=== PATIENT | female | born 1995 | race Caucasian/White ===

== ENCOUNTER 2016-10-14 12:29 | Outpatient (CLI) | payer MEDICAID, OTHER | END 2016-10-14 12:30 | disposition home or self-care (01) | DX: N64.4 Mastodynia (principal) ==

== ENCOUNTER 2018-05-01 01:33 | Emergency (ER) | payer SELFPAY ==
--- NOTE | 2018-05-01 02:17 | ED Physician Documentation ---
PD HPI UPPER EXT INJURY - Stated complaint Stated Complaint: RT WRIST INJURY - Chief complaint Chief Complaint: Ext Problem - History obtained from History obtained from: Patient - History of Present Illness Location: Right, Wrist Type of injury: Fall Where injury occurred: Street Timing - onset: Enter time (20:00), Today Improved by: Rest Worsened by: Moving, Palpating Associated symptoms: Swelling. No: Weakness, Numbness, Tingling Similar symptoms before: Has not had sx before Recently seen: Not recently seen - Additonal information Additional information: patient fell while skateboarding, approximately 8 PM tonight, c/o right wrist pain. Patient is right-hand dominant. 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 : None HEENT: None Psych: None, ADD/ADHD Musculoskeletal: None Derm: None - Past Surgical History Past Surgical History: No HEENT: Tonsil/Adenoidectomy - Present Medications Home Medications: Ambulatory Orders Medication Instructions Recorded Confirmed Dextroamphetamine/Amphetamine 30 mg PO TID 06/20/15 11/09/15 [Adderall 30 mg Tablet] Hydrocodone/Acetaminophen [[place] 1 each PO Q6H PRN #15 tablet 11/09/15 5-325 Tablet] Sulfamethoxazole/Trimethoprim 1 each PO BID #14 tablet 11/09/15 [Bactrim Ds Tablet] - Allergies Allergies/Adverse Reactions: Allergies Allergy/AdvReac Type Severity Reaction Status Date / Time amoxicillin Allergy Rash Verified 05/01/18 01:43 diphenhydramine HCl * AdvReac Respiratory Verified 05/01/18 01:43 [From Benadryl] - Social History Does the pt smoke?: No Smoking Status: Never smoker Does the pt drink ETOH?: No Does the pt have substance abuse?: No - Immunizations Immunizations are current?: Yes - POLST Patient has POLST: No PD ED PE NORMAL - Vitals Vital signs reviewed: Yes - General General: Alert and oriented X 3, No acute distress, Well developed/nourished - Derm Derm: Normal color, Warm and dry - Neuro Neuro: No motor deficit, No sensory deficit PD ED PE EXPANDED - Extremities Extremities: Limited ROM (limited supination of right wrist due to pain). No: Swelling, Bruising LEE ANN UE/Hands Visual: 1 - tenderness Results - Vitals Vitals: Vital Signs - 24 hr 05/01/18 05/01/18 05/01/18 01:41 02:12 02:50 Temperature 36.9 C Heart Rate 86 Respiratory 16 16 16 Rate Blood Pressure 117/69 O2 Saturation 100 05/01/18 05/01/18 03:38 03:45 Temperature Heart Rate 65 Respiratory 16 17 Rate Blood Pressure 114/76 O2 Saturation 100 Oxygen O2 Source Room air - Rads (name of study) right wrist xrays Radiology: Prelim report reviewed, See rad report PD MEDICAL DECISION MAKING - ED course Complexity details: reviewed results, re-evaluated patient, considered differential, d/w patient - Sepsis Event Vital Signs: Vital Signs - 24 hr 05/01/18 05/01/18 05/01/18 01:41 02:12 02:50 Temperature 36.9 C Heart Rate 86 Respiratory 16 16 16 Rate Blood Pressure 117/69 O2 Saturation 100 05/01/18 05/01/18 03:38 03:45 Temperature Heart Rate 65 Respiratory 16 17 Rate Blood Pressure 114/76 O2 Saturation 100 Oxygen O2 Source Room air Departure - Departure Disposition: 01 Home, Self Care Clinical Impression: Right wrist sprain Qualifiers: Encounter type: initial encounter Qualified Code(s): S63.501A - Unspecified sprain of right wrist, initial encounter Condition: Good Instructions: ED Splint Care Velcro, ED Sprain Wrist Follow-Up: Usman Lawrence MD [Provider Admit Priv/Credential] - (5-7 days if symptoms persist) Forms: Activity restrictions Discharge Date/Time: 05/01/18 03:45
--- NOTE | 2018-05-01 03:05 | XRAY Report ---
Procedure Date: 05/01/2018 Accession Number: [id number] / [id number] Procedure: XR - Wrist 3 View RT CPT Code: FULL RESULT: EXAM: RIGHT WRIST RADIOGRAPHY EXAM DATE: 05/01/2018 02:54 AM. CLINICAL HISTORY: Fall, pain and tenderness ulnar aspect. COMPARISON: None. TECHNIQUE: 4 views. FINDINGS: Bones: No fracture seen. Joints: No dislocation. Joint spaces appear intact. Soft Tissues: Soft tissue swelling. IMPRESSION: 1. No acute osseous abnormality seen. RADIA
[2018-05-01 03:48] VITALS: BP 114/76
== END 2018-05-01 03:45 | disposition home or self-care (01) ==
LOC: ED 01:33
DX: S63.501A Unspecified sprain of right wrist, initial encounter (principal); V00.131A Fall from skateboard, initial encounter; Y92.410 Unspecified street and highway as the place of occurrence of the external cause
CPT/HCPCS: 99282; 99283

== ENCOUNTER 2018-07-06 18:35 | Emergency (ER) | payer OTHER ==
--- NOTE | 2018-07-06 20:35 | ED Physician Documentation ---
PD HPI UPPER EXT INJURY - Stated complaint Stated Complaint: SWOLLEN R INDEX FINGER - Chief complaint Chief Complaint: Ext Problem - History obtained from History obtained from: Patient - History of Present Illness Location: Right, Finger (index) Type of injury: Puncture wound (was clearing debris and got puncture from thorny vine in index finger. She has had increased swelling and redness of it the past 2 days. Some redness to base of finger today.) Where injury occurred: Work Timing - onset: How many days ago (2) Timing - duration: Days (2) Timing - details: Gradual onset, Still present Worsened by: Moving, Palpating Associated symptoms: Swelling, Discolored (red). No: Weakness, Numbness Similar symptoms before: Has not had sx before Recently seen: Not recently seen Review of Systems Constitutional: reports: Myalgias. 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 HEENT: None Psych: None, ADD/ADHD Musculoskeletal: None Derm: None - Past Surgical History Past Surgical History: No HEENT: Tonsil/Adenoidectomy - Present Medications Home Medications: Ambulatory Orders Medication Instructions Recorded Confirmed Dextroamphetamine/Amphetamine 30 mg PO TID 06/20/15 11/09/15 [Adderall 30 mg Tablet] Hydrocodone/Acetaminophen [[place] 1 each PO Q6H PRN #15 tablet 11/09/15 5-325 Tablet] Sulfamethoxazole/Trimethoprim 1 each PO BID #14 tablet 11/09/15 [Bactrim Ds Tablet] Doxycycline Monohydrate 100 mg PO BID #14 tablet 07/06/18 Ondansetron HCl [Zofran] 4 mg PO Q6H PRN #15 tablet 07/06/18 - Allergies Allergies/Adverse Reactions: Allergies Allergy/AdvReac Type Severity Reaction Status Date / Time amoxicillin Allergy Rash Verified 07/06/18 18:48 diphenhydramine HCl * AdvReac Respiratory Verified 07/06/18 18:48 [From Benadryl] - Social History Does the pt smoke?: No Smoking Status: Never smoker Does the pt drink ETOH?: No Does the pt have substance abuse?: No - Immunizations Immunizations are current?: Yes - POLST Patient has POLST: No PD ED PE NORMAL - Vitals Vital signs reviewed: Yes - General General: Alert and oriented X 3, No acute distress, Well developed/nourished - Derm Derm: Normal color, Warm and dry, Other (redness with swelling right index finger mostly radial side. No FB seen. No drainage nor fluctuance. No redness in hand/wrist area. ) - Neuro Neuro: No motor deficit, No sensory deficit Results - Vitals Vitals: Vital Signs - 24 hr 07/06/18 18:46 Temperature 36.3 C L Heart Rate 73 Respiratory 14 Rate Blood Pressure 134/86 H O2 Saturation 99 Oxygen O2 Source Room air PD MEDICAL DECISION MAKING - ED course Complexity details: considered differential (looks like infection post thorn puncture, presume blackberrry. ), d/w patient Departure - Departure Disposition: 01 Home, Self Care Clinical Impression: Finger infection Puncture wound of left hand with infection Qualifiers: Encounter type: initial encounter Qualified Code(s): S61.432A - Puncture wound without foreign body of left hand, initial encounter Condition: Stable Record reviewed to determine appropriate education?: Yes Instructions: ED Wound Puncture General Prescriptions: Doxycycline Monohydrate 100 mg PO BID #14 tablet Ondansetron HCl [Zofran] 4 mg PO Q6H PRN #15 tablet PRN Reason: Nausea / Vomiting Comments: Continue soaking the finger in warm water to 3 times a day. Use doxycycline antibiotic twice daily for a week. Tylenol or ibuprofen if needed for pains. Make sure you take the ibuprofen with food so it does not bother her stomach. Use ondansetron if needed for nausea. Recheck if not improving over the next few days and return sooner if worsening. Discharge Date/Time: 07/06/18 21:15
[2018-07-06] MEDS ORDERED: ACETAMINOPHEN 325 MG TABLET PO STA (20:46)
[2018-07-06] MEDS ORDERED: ONDANSETRON ODT 4 MG TABLET TL STA (20:46)
[2018-07-06] MEDS ORDERED: DOXYCYCLINE 100 MG TABLET PO STA (20:46)
[2018-07-06] MEDS ORDERED: ONDANSETRON ODT 4 MG Prepack 2 TL PRN (20:46)
[2018-07-06] MEDS ORDERED: MAG HYDROX/AL HYDROX/SIMETH 30 ML UDC PO STA (20:47)
[2018-07-06 21:13] VITALS: BP 126/85
== END 2018-07-06 21:15 | disposition home or self-care (01) ==
LOC: ED 18:35
DX: S61.230A Puncture wound without foreign body of right index finger without damage to nail, initial encounter (principal); L08.9 Local infection of the skin and subcutaneous tissue, unspecified; X58.XXXA Exposure to other specified factors, initial encounter; Y99.0 Civilian activity done for income or pay
CPT/HCPCS: 99283; A9270; Q0162